=== PATIENT | female | born 1990 | race Caucasian/White ===

== ENCOUNTER 2016-05-24 23:26 | Emergency (ER) | payer OTHER ==
[2016-05-24 23:08] LABS: URINE SOURCE CLEAN CATCH
[2016-05-24 23:10] LABS: URINE APPEARANCE CLEAR; URINE BILIRUBIN NEG (NEG); URINE BLOOD TRACE-INTACT (NEG); URINE COLOR YELLOW; URINE GLUCOSE NEG (NORM); URINE KETONE NEG (NEG); URINE LEUKOCYTE ESTERASE NEG (NEG); URINE NITRATE NEG (NEG); URINE PROTEIN NEG (NEG); URINE UROBILINOGEN 0.2 MG/DL (NORM)
[2016-05-24 23:12] LABS: MICRO INDICATED? YES
[2016-05-24 23:13] LABS: CULTURE INDICATED? NO; URINE BACTERIA NEG (NEG); URINE MUCUS PRESENT; URINE SQUAMOUS EPITHELIAL CELL OCCAS /[HPF]; URINE TRANSITIONAL EPI CELLS FEW /[HPF]
[~2016-05-24 23:26] MED LIST: ACETAMINOPHEN PO; BIRTH CONTROL PILL; CIPRO PO; COLACE PO; MACROBID100 MG PO; NO MEDICATIONS; PYRIDIUM PO; TYLENOL #3 PO; ULTRACET TABLET1 TAB PO; VICODIN 5/1 TAB 5/50 PO; XARELTO15 MG PO; XARELTO20 MG PO; ZOFRAN ODT4 MG PO
[2016-10-20] MEDS ORDERED: MACROBID100 M1 PO (09:26)
== END 2016-05-24 23:46 | disposition home or self-care (01) ==
LOC: SED 23:26
PROVIDERS: Emergency Medicine
DX: R10.9 Unspecified abdominal pain (principal); F17.200 Nicotine dependence, unspecified, uncomplicated
CPT/HCPCS: 81003; 84703; 87086; 99284

== ENCOUNTER 2016-05-28 15:17 | Emergency (ER) | payer OTHER ==
--- NOTE | ~2016-05-28 | CT4 ---
[facility] RADIOLOGY TEXT RESULTS PATIENT: ANA MARIA DOBSON LOCATION: [facility] : 88 UNIT #: [id number] AGE: [address]: Joann Betancourt MD SEX: F ORDER DR: [id number] [facility] [address] [place], [place] [address] [id number] E MR#: [id number] #: [id number] NAME: ANA MARIA DOBSON : 1990 SEX: F STUDY DATE/TIME: 05/28/2016 16:17 UNIT: KATIE ROOM: STUDY DESCRIPTION: CT Abd and Pelv Wo Cont Attending Physician: Joann Betancourt M.D. Ordering Physician: Joann Betancourt M.D. Primary Care Physician: Harry Diaz M.D. MEDICAL IMAGING REPORT This report is preliminary unless electronic signature is present EXAM CT abdomen and pelvis without contrast. HISTORY Left flank pain for 2 days. COMPARISON 09/12/[address] exam was performed with one or more of the following radiation dose reduction techniques: automatic exposure control, adjustment of mA and/or kV according to patient size, and iterative reconstruction. TECHNIQUE Axial 3 mm images were obtained through the abdomen and pelvis without IV or oral contrast. FINDINGS Lung bases are clear. The liver, gallbladder, spleen, pancreas, adrenal glands and left kidney are normal. The right kidney has a very faint possible 1 mm stone. No ureteral stones are suggested. The bowel is normal. The aorta is normal in size. The uterus and adnexal regions are normal for age. There is a tiny amount of free fluid. Bladder is normal. Bones are unremarkable. IMPRESSION 1. The patient does have a small amount of free fluid in the pelvis which may be physiologic at her age but could also represent recent ovarian cyst rupture. 2. Possible 1 mm stone right kidney. 3. No evidence of left hydronephrosis. 4. Otherwise normal. [facility] RADIOLOGY TEXT RESULTS PATIENT: ANA MARIA DOBSON LOCATION: [facility] : 88 UNIT #: [id number] AGE: [address]: Joann Betancourt MD SEX: F ORDER DR: Dictated by... Miguel Funez M.D. THIS IS AN ELECTRONICALLY VERIFIED REPORT Miguel Funez M.D. at 05/29/2016 12:24 PM ZOHAIB/priscila TD: 05/29/2016 09:29 JOB #: [id number] MEDICAL IMAGING REPORT COPY
[2016-05-28 14:52] LABS: BASOPHIL% 0.3 % (0-2.5); EOSINOPHIL% 0.3 % (0.0-7.0); HEMATOCRIT 43.5 % (35.0-45.0); HEMOGLOBIN 14.7 gm/dL (12.0-16.0); LYMPHOCYTE# 1.3 X10e3 (1.0-3.5); LYMPHOCYTE% 15.9 % (17.0-45.0); MEAN CELL VOLUME 91.2 FL (83-96); MEAN CORPUSCULAR HEMOGLOBIN 30.9 PG (28-34); MEAN CORPUSCULAR HGB CONC 33.9 g/dL (30-36); MEAN PLATELET VOLUME 8.5 FL (6.5-11.5); MONOCYTE# 0.4 X10e3 (0-1.0); MONOCYTE% 5.5 % (3.0-12.0); NEUTROPHIL# 6.3 X10e3 (1.5-7.1); PLATELET COUNT 214 X10e3 (140-420); RED BLOOD COUNT 4.77 X10e (3.90-5.30); RED CELL DISTRIBUTION WIDTH 12.6 % (11.0-15.5); WHITE BLOOD COUNT 8.1 X10e3 (4.0-10.5)
[2016-05-28 14:53] LABS: DIFF IND NO
[2016-05-28 15:20] LABS: ALKALINE PHOSPHATASE 58 U/L (32-92); ALT (SGPT) 20 U/L (10-40); AMYLASE 51 U/L (0-46); AST (SGOT) 18 U/L (10-42); BILIRUBIN, DIRECT 0.1 mg/dL (0.0-0.2); BILIRUBIN,INDIRECT 0.6 mg/dL (0.0-0.9); BILIRUBIN,TOTAL 0.7 mg/dL (0.2-2.0); BLOOD UREA NITROGEN 12 mg/dL (9-23); CALCIUM SERUM 9.1 mg/dL (8.4-10.2); CARBON DIOXIDE 22 mmol/L (22-31); CHLORIDE 106 mmol/L (100-111); CREATININE SERUM 0.6 mg/dL (0.6-1.4); GLOM FILT RATE Estimated ABOVE60 mL/min (>60); GLUCOSE FASTING 84 mg/dL (70-110); LIPASE 39 U/L (22-51); POTASSIUM 4.1 mmol/L (3.5-5.1); PROTEIN TOTAL SERUM 8.3 g/dL (6.0-8.3); SODIUM 140 mmol/L (135-145)
[2016-05-28 15:26] LABS: URINE SOURCE CLEAN CATCH
[2016-05-28 15:32] LABS: URINE APPEARANCE CLOUDY; URINE BILIRUBIN NEG (NEG); URINE BLOOD NEG (NEG); URINE COLOR YELLOW; URINE GLUCOSE NEG (NEG); URINE KETONE NEG (NEG); URINE LEUKOCYTE ESTERASE 1+ (NEG); URINE NITRATE POS (NEG); URINE PROTEIN NEG (NEG); URINE SPECIFIC GRAVITY 1.014 (1.003-1.035); URINE UROBILINOGEN 0.2 MG/DL (NEG)
[2016-05-28 15:35] LABS: CULTURE INDICATED? YES; URINE BACTERIA AUWI 4+ (NEGATIVE); URINE SQUAMOUS EPITHELIAL CELL MOD /[HPF]; UWBCS1 AUWI 25-50 (0-5)
[2016-05-28 15:51] LABS: U HYALINE CASTS AUWI 0-2 /[LPF]
[2016-10-20] MEDS ORDERED: MACROBID100 M1 PO (09:26)
== END 2016-05-28 17:59 | disposition home or self-care (01) ==
LOC: CED 15:17
PROVIDERS: Emergency Medicine; Student in an Organized Health Care Education/Training Program
DX: N12 Tubulo-interstitial nephritis, not specified as acute or chronic (principal); Z88.2 Allergy status to sulfonamides; Z88.5 Allergy status to narcotic agent
CPT/HCPCS: 36415; 74176; 80048; 80076; 81003; 82150; 83690; 84703; 85025; 87086; 87088; 87186; 96361; 96374; 96375; 99284; J0696; J2270; J2405

== ENCOUNTER 2016-09-14 14:15 | Emergency (ER) | payer OTHER ==
[2016-09-14] MEDS ORDERED: NO MEDICATIONS (14:17)
[2016-09-14 14:48] LABS: URINE SOURCE CLEAN CATCH
[2016-09-14 15:47] LABS: URINE APPEARANCE CLEAR; URINE BILIRUBIN NEG (NEG); URINE BLOOD 2+ (NEG); URINE COLOR YELLOW; URINE GLUCOSE NEG (NORM); URINE KETONE NEG (NEG); URINE LEUKOCYTE ESTERASE NEG (NEG); URINE NITRATE NEG (NEG); URINE PH 7.5 (5-8); URINE PROTEIN NEG (NEG); URINE SPECIFIC GRAVITY 1.015 (1.003-1.035)
[2016-09-14 15:51] LABS: MICRO INDICATED? YES
[2016-09-14 15:56] LABS: CULTURE INDICATED? NO; URINE BACTERIA NEG (NEG); URINE MUCUS PRESENT; URINE RBC 0-2 /[HPF] (0-2); URINE SQUAMOUS EPITHELIAL CELL MODERATE /[HPF]; URINE WBC 0-2 /[HPF] (0-5)
[2016-10-20] MEDS ORDERED: MACROBID100 M1 PO (09:26)
== END 2016-09-14 16:08 | disposition home or self-care (01) ==
LOC: SED 14:15
PROVIDERS: Physician Assistant
DX: N30.01 Acute cystitis with hematuria (principal); Z88.2 Allergy status to sulfonamides; Z88.1 Allergy status to other antibiotic agents; Z88.5 Allergy status to narcotic agent; F17.210 Nicotine dependence, cigarettes, uncomplicated
CPT/HCPCS: 81003; 84703; 99283

== ENCOUNTER 2016-10-17 21:21 | Emergency (ER) | payer OTHER ==
[~2016-10-17] VITALS: Ht 167.6 cm; Wt 59.0 kg
[2016-10-17] MEDS ORDERED: BIRTH CONTROL PILL (21:28)
[2016-10-17 22:01] LABS: URINE SOURCE CLEAN CATCH
[2016-10-17 22:04] LABS: URINE APPEARANCE CLEAR; URINE BILIRUBIN NEG (NEG); URINE BLOOD 1+ (NEG); URINE COLOR YELLOW; URINE GLUCOSE NEG (NORM); URINE LEUKOCYTE ESTERASE 1+ (NEG); URINE NITRATE POS (NEG); URINE PH 5.5 (5-8); URINE PROTEIN NEG (NEG); URINE UROBILINOGEN 0.2 MG/DL (NORM)
[2016-10-17 22:05] LABS: URINE KETONE 3+ (NEG)
[2016-10-17 22:06] LABS: MICRO INDICATED? YES
[2016-10-17 22:10] LABS: CULTURE INDICATED? YES; URINE BACTERIA 1+ (NEG); URINE SQUAMOUS EPITHELIAL CELL MODERATE /[HPF]; URINE WBC 50-100 /[HPF] (0-5)
[2016-10-17 22:11] LABS: URINE MUCUS PRESENT
[2016-10-17 22:45] LABS: BASOPHIL% 0.4 % (0-2.5); EOSINOPHIL% 0.1 % (0.0-7.0); HEMATOCRIT 41.1 % (35.0-45.0); LYMPHOCYTE# 0.8 X10e3 (1.0-3.5); LYMPHOCYTE% 11.2 % (17.0-45.0); MEAN CELL VOLUME 91.5 FL (83-96); MEAN CORPUSCULAR HEMOGLOBIN 31.2 PG (28-34); MEAN CORPUSCULAR HGB CONC 34.1 g/dL (30-36); MEAN PLATELET VOLUME 7.8 FL (6.5-11.5); MONOCYTE# 0.6 X10e3 (0-1.0); MONOCYTE% 8.2 % (3.0-12.0); NEUTROPHIL# 5.5 X10e3 (1.5-7.1); NEUTROPHIL% 80.1 % (40-75); PLATELET COUNT 169 X10e3 (140-420); RED BLOOD COUNT 4.49 X10e (3.90-5.30); RED CELL DISTRIBUTION WIDTH 12.7 % (11.0-15.5); WHITE BLOOD COUNT 6.9 X10e3 (4.0-10.5)
[2016-10-17 22:47] LABS: DIFF IND NO
[2016-10-17 23:04] LABS: ALBUMIN SERUM 4.6 g/dL (3.5-5.0); BILIRUBIN, DIRECT 0.2 mg/dL (0.0-0.2); BILIRUBIN,INDIRECT 0.9 mg/dL (0.0-0.9); BILIRUBIN,TOTAL 1.1 mg/dL (0.2-2.0); BUN/CREATININE RATIO 12.85; CALCIUM SERUM 9.5 mg/dL (8.4-10.2); CREATININE SERUM 0.7 mg/dL (0.6-1.4); GLOM FILT RATE Estimated 118.7 mL/min (>60); POTASSIUM 3.4 mmol/L (3.5-5.1)
[2016-10-20] MEDS ORDERED: MACROBID100 M1 PO (09:26)
== END 2016-10-18 00:01 | disposition home or self-care (01) ==
LOC: SED 21:21
PROVIDERS: Emergency Medicine
DX: N39.0 Urinary tract infection, site not specified (principal); F17.200 Nicotine dependence, unspecified, uncomplicated; Z86.718 Personal history of other venous thrombosis and embolism; Z98.890 Other specified postprocedural states; Z88.5 Allergy status to narcotic agent; Z88.2 Allergy status to sulfonamides
CPT/HCPCS: 36415; 80048; 80076; 81003; 83605; 83690; 85025; 87040; 87086; 87088; 87186; 96365; 96375; 99283; J0696; J2405